=== PATIENT | male | born 1975 | race Caucasian/White ===

== ENCOUNTER 2022-11-23 11:16 | Outpatient (CLI) | payer BC, SELFPAY ==
--- NOTE | ~2022-11-23 | CT_ITS ---
EXAMINATION: CT abdomen pelvis wo con DATE: 11/23/2022 11:37 INDICATION: Hematuria and abdominal pain TECHNIQUE: Computed tomography (CT) of the abdomen and pelvis was performed without intravenous contr ast. The dose-length product (DLP) was 1533.62 mGy-cm. Automated exposure control and iterative recon struction technique were employed. COMPARISON: None FINDINGS: The lung bases are clear. The heart size is normal. There is a small sliding hiatal hernia. Surgical changes are seen near the gastroesophageal junction. The gallbladder is distended and conta ins stones. The liver, spleen, pancreas, and adrenal glands are normal. There is a 1.8 cm stone in t he left renal pelvis. There is moderate inflammatory change surrounding the left renal pelvis and pro ximal ureter. There is mild proximal hydroureter and hydronephrosis on the left. The right kidney is unremarkable. No pathologically enlarged abdominal or pelvic lymph nodes are identified. No free intr aperitoneal gas or evidence of bowel obstruction. The appendix is normal. There is moderate lower lum bar spondylosis. IMPRESSION: 1. 1.8 cm stone in the left renal pelvis with mild proximal left hydroureteronephrosis and inflammato ry change surrounding the renal pelvis. 2. Cholelithiasis with gallbladder distention. Correlate for right upper quadrant tenderness. Reviewed, dictated and finalized at location B. RESTORATION SERVICE CLEANER IMPRESSION: 1. 1.8 cm stone in the left renal pelvis with mild proximal left hydroureterone phrosis and inflammatory change surrounding the renal pelvis. 2. Cholelithiasis with gallbladder distention. Correlate for right upper quadra nt tenderness.
== END 2022-11-23 11:17 | disposition home or self-care (01) ==
LOC: ANHIMG 11:18
PROVIDERS: PCP Family Medicine; Visit Provider Physician Assistant
DX: N20.0 Calculus of kidney (principal); N13.30 Unspecified hydronephrosis; K80.20 Calculus of gallbladder without cholecystitis without obstruction; K82.8 Other specified diseases of gallbladder
CPT/HCPCS: 74176

== ENCOUNTER 2022-11-23 12:10 | Emergency (ER) | payer BC, SELFPAY ==
[2022-11-23 12:22] VITALS: BP 126/63; PULSE 63; RESP 18; TEMP 36.6; O2SAT 100
--- NOTE | 2022-11-23 16:10 | ED.MALEGU ---
HPI - Male Genitourinary General Chief complaint: Urogenital-Male Stated complaint: kidney stone-sent by PCP Time Seen by Provider: 11/23/22 15:57 History of Present Illness HPI Narrative: Patient is a 47-year-old male who presents ER with left-sided flank pain. Had a kidney stone found on CT outpatient. Pain has been ongoing over a week and has been radiating to his upper abdomen. He noticed dysuria and hematuria today. No fevers or chills or sweats. Has not been on any antibiotics. Has been taking [id number] ibuprofen for pain. Related Data Home Medications Medication Instructions Recorded Confirmed cholecalciferol (vitamin D3) 125 125 mcg PO DAILY 07/12/22 11/20/22 mcg (5,000 unit) capsule lamotrigine 100 mg tablet 100 mg PO DAILY 07/12/22 11/20/22 Allergies Allergy/AdvReac Type Severity Reaction Status Date / Time No Known Allergies Allergy Verified 11/20/22 07:16 Review of Systems Review of Systems: All systems reviewed & are unremarkable except as noted in HPI and below Constitutional: Constitutional: Denies chills, Denies fatigue and Denies fever(s) ENT: Denies nasal congestion and Denies sore throat Cardiovascular: Cardiovascular: Denies chest pain, Denies rapid heart rate and Denies radiating jaw, neck or arm pain Respiratory: Respiratory: Denies cough and Denies dyspnea Gastrointestinal: Gastrointestinal: Reports abdominal pain, Denies diarrhea, Denies nausea and Denies vomiting Genitourinary: Genitourinary: Reports hematuria, Reports dysuria and Denies urinary frequency Comments: Left flank pain PMFSH Social History Social History Smoking packs per day: 0.5 Smoking cigarettes per day: 10.0 Years smoked: 30 Smoking pack-years: 15.00 Smoking status: Former smoker Second hand tobacco smoke exposure: No Alcohol intake: current Alcohol use details: rarely- social Substance use: never Living arrangements: with family Occupation/Education: occupation Gender identity (if verbalized by the patient): Male Sexual Orientation (if Verbalized by the Patient): Straight or Heterosexual Spiritual care concerns: No Exam Narrative: GENERAL: Well-appearing, obese, and in no acute distress. HEAD: Normocephalic, atraumatic. ENT: Mucous membranes moist. CHEST: Clear to auscultation. No respiratory distress. HEART: Regular rate and rhythm. Normal peripheral pulses. ABDOMEN: Soft, nontender, nondistended. No CVA tenderness EXTREMITIES: Normal range of motion. No edema. SKIN: Warm, dry, no rash. NEURO: Alert and oriented x3. PSYCH: Normal mood and affect. Course Course Emergency Course: 1610: Discussed with Dr. Freire, he will see what the OR looks like. Urology performed bedside consultation on the patient. After evaluation discussion is recommend that patient receive IV ceftriaxone for UTI and as long as patient's white blood cell count and creatinine are within normal limits he can be discharged and have lithotripsy next week. Patient is to be counseled regarding return precautions including fever, severe pain, or inability keep down food/water/medication. Vital Signs Vital signs: Vital Signs Temperature 97.9 F 11/23/22 12:22 Pulse Rate 63 11/23/22 12:22 Respiratory Rate 18 11/23/22 12:22 Blood Pressure 126/63 11/23/22 12:22 Pulse Oximetry 100 11/23/22 12:22 Oxygen Delivery Room Air 11/23/22 12:22 Temperature 97.9 F 11/23/22 12:22 Pulse Rate 63 11/23/22 12:22 Respiratory Rate 18 11/23/22 12:22 Blood Pressure 126/63 11/23/22 12:22 Pulse Oximetry 100 11/23/22 12:22 Oxygen Delivery Room Air 11/23/22 12:22 MDM - Male Genitourinary Lab Data 11/23/22 16:28 11/23/22 16:28 Labs: Lab Results 11/23/22 11/23/22 11/23/22 Range/Units 16:28 16:28 16:28 WBC 7.2 (4.5-10.0) K/mm3 RBC 4.56 L (4.6-6.20) M/mm3 Hgb 13.8
[2022-11-23 16:42] LABS: Basophils Absolute Auto 0.1 K/mm3 (0.0-0.1); Basophils Percent Auto 1.2 % (0.2-1.2); Eosinophils Absolute Auto 0.3 K/mm3 (0-0.3); Eosinophils Percent Auto 4.6 % (0-4.4); Hematocrit 40.4 % (42.0-52.0); Hemoglobin 13.8 g/dL (14.0-18.0); Immature Granulocyte Absolute 0.02 K/mm3 (0.00-0.031); Immature Granulocyte Percent A 0.3 % (0-0.5); Lymphocytes Percent Auto 29.1 % (18.3-44.2); Mean Corpuscular HGB Conc 34.2 g/dl (32-36); Mean Corpuscular Hemoglobin 30.3 pg (26-34); Mean Corpuscular Volume 88.6 fl (80-100); Monocytes Absolute Auto 0.5 K/mm3 (0.1-0.6); Monocytes Percent Auto 7.5 % (2.6-8.5); Neutrophils Absolute Auto 4.1 K/mm3 (1.3-6.7); Neutrophils Percent Auto 57.3 % (45.5-73.1); Platelet Count Result 345 k/mm3 (150-375); Red Blood Count 4.56 M/mm3 (4.6-6.20); Red Cell Distribution Width 13.4 % (11.5-14.5); White Blood Count 7.2 K/mm3 (4.5-10.0)
--- NOTE | 2022-11-23 16:46 | WPDURCON ---
Assessment and Plan Assessment and plan (1) Left renal stone: Code(s): N20.0 - Calculus of kidney Status: Acute Assessment and Plan: Large left renal pelvic stone it almost certainly will require cystoscopy with left ureteral stent placement and left ESWL. Need for stent placement prior to ESWL will be dependent on his laboratory findings. Urology Consult Note HPI Date Seen: 11/23/22 Primary Care Provider: Marquez Johnson MD Consult Narrative Narrative: Troy Luu is a 47 year old male Without prior known history of urolithiasis and without prior visits to our practice. He presents to the emergency department predominantly with irritable voiding symptoms , specific reporting increased urinary frequency urgency and slight dysuria.. He denies fevers chills gross hematuria and reported only minimal left flank and left upper quadrant pain. Imaging demonstrates a large 18 mm Stone in the left renal pelvis with minimal hydronephrosis and slight perinephric stranding. Urinalysis and laboratory work pending. Review of Systems Cardiovascular: Cardiovascular: Denies chest pain, Denies lightheadedness, Denies palpitations and Denies dyspnea Respiratory: Respiratory: Denies dyspnea Gastrointestinal: Gastrointestinal: Denies diarrhea, Denies nausea and Denies vomiting Genitourinary: Genitourinary: Denies hematuria and Denies dysuria Endocrine: Endocrine: Denies palpitations PMFSH Social History Social History Smoking packs per day: 0.5 Smoking cigarettes per day: 10.0 Years smoked: 30 Smoking pack-years: 15.00 Smoking status: Former smoker Second hand tobacco smoke exposure: No Alcohol intake: current Alcohol use details: rarely- social Substance use: never Living arrangements: with family Occupation/Education: occupation Gender identity (if verbalized by the patient): Male Sexual Orientation (if Verbalized by the Patient): Straight or Heterosexual Spiritual care concerns: No Meds Home Medications and Allergies Home Medications Medication Instructions Recorded Confirmed Type omeprazole 20 mg capsule,delayed 20 mg PO DAILY #30 caps 05/15/21 11/20/22 Rx release lisinopril 20 mg tablet 20 mg PO DAILY #90 tabs 04/03/22 11/20/22 Rx cholecalciferol (vitamin D3) 125 125 mcg PO DAILY 07/12/22 11/20/22 History mcg (5,000 unit) capsule lamotrigine 100 mg tablet 100 mg PO DAILY 07/12/22 11/20/22 History ciprofloxacin HCl 250 mg tablet 250 mg PO Q12H #6 tabs 11/20/22 11/20/22 Rx Allergies Allergy/AdvReac Type Severity Reaction Status Date / Time No Known Allergies Allergy Verified 11/20/22 07:16 Vital Signs Vital Signs - 24 hr 11/23/22 12:22 Temperature 97.9 F Pulse Rate 63 Respiratory Rate 18 Blood Pressure 126/63 Pulse Oximetry 100 Oxygen Delivery Room Air Exam Const: General: no acute distress Resp: Effort & Inspection: normal respiratory effort GI: Inspection: non-distended GI Palp: No abdominal tenderness and No Guarding due to palpation present (GI) Auscultation: normal bowel sounds Results Labs 11/23/22 16:28 11/23/22 16:28
[2022-11-23 16:52] LABS: Alanine Aminotransferase 24 U/L (6-50); Albumin Level 4.3 g/dL (3.5-5.1); Alkaline Phosphatase 94 U/L (38-126); Anion Gap 8 mmol/L (8-16); Appearance Urine Slightly Cloudy (Clear); Aspartate Amino Transferase 25 U/L (17-59); Bilirubin Urine Negative (Negative); Bilirubin,Total 0.4 mg/dL (0.2-1.3); Blood Urea Nitrogen 14 mg/dL (9-20); Blood Urine 3+ (Negative); Carbon Dioxide 28 mmol/L (22-30); Chloride 107 mmol/L (98-107); Color Urine Yellow (Yellow); Estimated CRCL calculation 111 ml/min; Estimated Glomerular Filt Rate > 60; Glucose 79 mg/dL (65-110); Glucose Urine UA Negative (Negative); Ketones Urine Negative (Negative); Leukocyte Esterase Ur 2+ LEU/UL (Negative); Nitrate Urine Negative (Negative); Potassium 4.1 mmol/L (3.4-5.0); Protein Urine 3+ mg/dL (Negative); Sodium 143 mmol/L (137-145); Specific Grav Ur 1.025 (1.001-1.035); Urobilinogen Urine 0.2 mg/dL (<2.0); pH Urine 5.5 (5.0-9.0)
[2022-11-23 17:02] LABS: Bacteria Urine Trace /hpf; Mucus Urine Rare /lpf; RBC Urine >75 /hpf (0-2); WBC Clumps Urine Present /HPF; WBC Urine >75 /hpf
[2022-11-23 17:15] LABS: Add Urine Microscopic? YES
== END 2022-11-23 18:55 | disposition home or self-care (01) ==
PROVIDERS: Emergency Provider Emergency Medicine; PCP Family Medicine
DX: N20.0 Calculus of kidney (principal); N39.0 Urinary tract infection, site not specified; Z87.891 Personal history of nicotine dependence
CPT/HCPCS: 36415; 80053; 81001; 85025; 87086; 96365; 99284; J0696

== ENCOUNTER 2022-11-29 07:16 | Outpatient (CLI) | payer BC, SELFPAY ==
--- NOTE | 2022-11-29 07:37 | ECG_ITS ---
Measurements Intervals [place] Rate: 72 P: 133 WA: 115 QRS: -15 QRSD: 116 T: 0 QT: 374 QTc: 410 Interpretive Statements SINUS RHYTHM LOW QRS VOLTAGE IN PRECORDIAL LEADS [QRS DEFLECTION < 1.0 mV IN CHEST LEADS] BASELINE ARTIFACT IN LEADS V5-6 NO PREVIOUS ECG AVAILABLE FOR COMPARISON Electronically Signed On 11-29-2022 15:39:30 DRILLING PLANT OPERATOR by Dennis Valenzuela M.D.
[2022-11-29 08:39] LABS: Partial Thromboplastin Time 31.5 SECONDS (22.3-36.8); Prothrombin Time 12.6 Seconds (11.1-14.7)
== END 2022-11-29 07:17 | disposition home or self-care (01) ==
LOC: ANHSURGERY 07:20
PROVIDERS: PCP Family Medicine; Visit Provider Urology
DX: Z01.818 Encounter for other preprocedural examination (principal); N20.0 Calculus of kidney; I10 Essential (primary) hypertension
CPT/HCPCS: 36415; 85610; 85730; 93005

== ENCOUNTER 2022-11-30 00:27 | Day surgery (SDC) | payer BC, SELFPAY ==
[2022-11-27 14:32] VITALS: BMI 39.6
--- NOTE | 2022-11-27 14:38 | PC.NURSE ---
Report to the Outpatient Waiting Room, entrance under the green pavilion located off [facility], at time 7:30 on date 11/30/22. Planned Procedure Time: 9:30. Time changes happen often and if your time is changed the preop area will call you the afternoon before. - You and your visitor will be asked to self-screen and do not enter if you have any COVID symptoms. - Only one visitor is requested with a max of two and NO children visitors are allowed at this time. - The patient visitor may be requested to leave or wait in car when not with patient due to distancing restrictions. - A mask is optional within the hospital at this time. Patients may have clear liquids (water, carbonated beverages, clear teas, apple juice) until 3 hours prior to surgery (6:30) with a maximum of 20 ounces. - No food from midnight until time of surgery Take the following medications with a SIP of water the morning of surgery: ANTIBIOTIC, PAIN PILL IF NEEDED DO NOT STOP ANY OF YOUR OTHER PRESCRIPTION MEDICATIONS PRIOR TO SURGERY EXCEPT THE FOLLOWING Medications to discontinue per physician: VITAMINS Date to take last dose: NO MORE UNTIL AFTER SURGERY NO MORE IBUPROFEN UNTIL AFTER SURGERY Please no make-up, nail moroccan, hairspray, perfume, deodorant, or body powder the day of surgery. No jewelry (including any body piercings) or valuables the day of surgery, leave them at home. Please take a shower or bath the night before, or the morning of, surgery with an antibacterial soap. Wear comfortable, loose fitting clothing. - Jewelry must be removed prior to entering the operating room. Rings and piercings that are not removed may be cut off. - The hospital will not accept responsibility for valuables. - Please leave all valuables, including medications, at home the day of surgery. If you are going home after surgery, a licensed driver material handler must drive you home. - NO public transportation without another adult if you receive anesthesia. - We recommend that an adult stay with you for 24 hours following discharge. - We also recommend that you do not drive, make important decision, drink alcoholic beverages, or take any drugs that were not prescribed by your health care provider for at least 24 hours after your discharge time. Follow any additional instructions given to you from your surgeon. If you or anyone in your household have experienced Covid symptoms in the past week, please notify your surgeon or the nurse liaison at the phone number below for possible testing. Telephone instructions given to ERICA HILL and asked if any additional questions and then verbalized understanding. Patient advised to call surgeon office or pre surgery nurse liaison [phone] if any additional questions.
--- NOTE | ~2022-11-30 | XR_ITS ---
Supine and upright views of the abdomen Clinical history: Nephrolithiasis Findings: Bowel gas pattern is nonspecific. No evidence for obstruction or free air. 2.9 x 2.2 cm lef t renal stone is present. No definite right renal stone. Osseous structures are intact. Impression: 2.9 x 2.2 cm left renal stone. Reviewed, dictated and finalized at [facility]. RAIL CAR OPERATOR Impression: 2.9 x 2.2 cm left renal stone.
[2022-11-30 08:06] VITALS: BP 131/91; PULSE 74; RESP 18; TEMP 37.1; O2SAT 100
--- NOTE | 2022-11-30 08:09 | WPDHPUPDATE1 ---
History and Physical Update Update Date/Time: 11/30/22 08:09 History and Physical has been reviewed, including an updated exam of the patient. There are NO changes in the patient's condition. Risks, benefits, and alternatives have been discussed and questions answered. Patient agrees to proceed with procedure. Proceed with cystoscopy, left retrograde pyelogram, left ureteral stent placement, left renal ESWL
[2022-11-30] MEDS: LACTATED RINGERS 1,000 ML 30 ML IV CONT (08:30)
--- NOTE | 2022-11-30 08:56 | WPDANESEPPF ---
Anes - Initial Pre Proc Eval Procedure: Operation Date: 11/30/22 09:30 Proposed Procedures p Left Extracorporeal Shock Wave Lithotripsy - Shilo Wade MD s Cystoscopy with Left Stent Placement - Shilo Wade MD Date/Time: 11/30/22 08:56 Surgeon: Shilo Wade MD Pre Op Diagnosis: left kidney stones Patient Data Age: 47 Gender: M Height: 1.78 m Weight: 122.1 kg Last Vital Signs Temp 37.1 C 11/30/22 08:06 Pulse 74 11/30/22 08:06 Resp 18 11/30/22 08:06 BP 131/91 H 11/30/22 08:06 Pulse Ox 100 11/30/22 08:06 O2 Del Method Room Air 11/30/22 08:06 Allergies Allergy/AdvReac Type Severity Reaction Status Date / Time No Known Allergies Allergy Verified 11/30/22 07:56 Home Medications Medication Instructions Recorded Confirmed Type cholecalciferol (vitamin D3) 125 125 mcg PO HS 07/12/22 11/30/22 History mcg (5,000 unit) capsule lamotrigine 100 mg tablet 100 mg PO HS 07/12/22 11/30/22 History ciprofloxacin HCl 500 mg tablet 500 mg PO Q12H #20 tabs 11/23/22 11/30/22 Rx hydrocodone 5 mg-acetaminophen 325 1 tablet PO Q6H PRN pain #20 tabs 11/23/22 11/30/22 Rx mg tablet ondansetron 4 mg disintegrating 4 mg PO Q6H PRN nausea and 11/23/22 11/30/22 Rx tablet vomiting #10 tabs ibuprofen 800 mg tablet 800 mg PO Q6H PRN Pain 11/27/22 11/30/22 History lisinopril 20 mg tablet 20 mg PO HS 11/27/22 11/30/22 History omeprazole 20 mg capsule,delayed 20 mg PO HS 11/27/22 11/30/22 History release tamsulosin 0.4 mg capsule 0.4 mg PO HS 11/27/22 11/30/22 History Patient hx anesthesia problems: none Family hx anesthesia problems: none Results Review: All pre-operative results and documents have been reviewed as part of the pre-operative evaluation. [facility] Surgical History Surgical History (Updated 11/30/22 @ 08:57 by Troy Carnes MD) S/P gastric sleeve procedure Social History Social History Smoking packs per day: 0.5 Smoking cigarettes per day: 10.0 Years smoked: 30 Smoking pack-years: 15.00 Smoking status: Former smoker Smokeless tobacco user: chewing tobacco Second hand tobacco smoke exposure: No Alcohol intake: current Alcohol use details: RARE Substance use: never Substance use type: does not use Living arrangements: with family Occupation/Education: occupation Gender identity (if verbalized by the patient): Male Sexual Orientation (if Verbalized by the Patient): Straight or Heterosexual Spiritual care concerns: No Anes - Eval Final PreProcedure Day of Procedure 11/30/22 08:56 Patient weight: obese Heart: regular rate and rhythm Lungs: clear to auscultation Airway: Mallampati scale class II Neurological: alert and oriented Last oral intake: >/= 8 hours ASA classification: III Emergent: no Anesthetic plan: proceed Anesthesia type and monitoring: general LMA and standard monitoring Results Review: All pre-operative results and documents have been reviewed as part of the pre-operative evaluation. Informed Consent: The patient's anesthetic plan and its attendant risks and benefits were discussed with the patient/family/POA. Questions were solicited and answers provided to the satisfaction of the patient/family/POA.
[2022-11-30] MEDS: ceFAZolin 3 GM/D5W 100 ML 100 ML IVPB (09:25)
[2022-11-30] MEDS: LIDOCAINE HCL 2% GEL UROJET 10 ML PKG MUCOUS MEM (09:38)
--- NOTE | 2022-11-30 10:22 | P.OP_ITS ---
Procedure Note - Detailed Date of Procedure 11/30/22 Pre-op Diagnosis Left renal stone 2.3 cm Post-op Diagnosis Same Procedure Performed Cystoscopy, left retrograde pyelogram, left ureteral stent placement 4.8 Macedonian contour, left renal lithotripsy Surgeon Shilo Wade MD Anesthesia General Description of Procedure Patient is taken to the operative suite correctly identified. Once anesthesia was obtained he was prepped and draped usual sterile fashion. Sixteen Macedonian flexible scope was inserted the bladder. He has some mild bulbar urethral narrowing but allowed passage of the scope. There were no tumors noted in the bladder. Left ureteral orifice was cannulated with a guidewire and the wire was manipulated past the stone in the renal pelvis. A retrograde ureteral catheter was then inserted and a pyelogram was confirmed of confirm placement of the stent. A 4.8 Macedonian contour stent was then placed with the proximal end coiled above the stone in the distal in the bladder. 2% viscous lidocaine was inserted urethra. Patient was repositioned. The stone was localized in both planes. Two thousand five hundred shocks were given to the stone. Is a very large stone. Will have to see how it fragments over the next few days. Patient will follow-up in a week to [address] Freire with a KUB. Please send a copy this to my office. Estimated Blood Loss 0 Drains Yes Packing No Pathology None sent Complications No immediate complications Condition Stable Disposition PACU
[2022-11-30 10:23] VITALS: BP 137/84; PULSE 86; RESP 12; TEMP 36.6; O2SAT 97
[2022-11-30 10:35] VITALS: BP 112/74; PULSE 70; RESP 13; O2SAT 100
[2022-11-30 10:50] VITALS: BP 95/58; PULSE 66; RESP 13; O2SAT 95
--- NOTE | 2022-11-30 10:51 | SUR.PHASEI ---
1045: Simple mask removed.
[2022-11-30 11:10] VITALS: BP 134/88; PULSE 63; RESP 16
[2022-11-30 11:40] VITALS: BP 122/80; PULSE 67; RESP 12
== END 2022-11-30 11:50 | disposition home or self-care (01) ==
PROVIDERS: PCP Family Medicine; Visit Provider Urology
PROC: (CPT 50590; principal; 2022-11-30 09:30)
PROC: (CPT 52352; 2022-11-30 09:30)
DX: N20.1 Calculus of ureter (principal); Z98.84 Bariatric surgery status; F17.220 Nicotine dependence, chewing tobacco, uncomplicated; E66.9 Obesity, unspecified; Z68.38 Body mass index [BMI] 38.0-38.9, adult
CPT/HCPCS: 52332; 50590; 74018; C1769; C2617; J0690; J1100; J2250; J2405; J2704; J3010; J7030; J7120

== ENCOUNTER 2022-12-14 09:25 | Outpatient (CLI) | payer BC, SELFPAY ==
--- NOTE | ~2022-12-14 | XR_ITS ---
Supine and upright views of the abdomen Clinical history: Left-sided kidney stone COMPARISON: 11/30/2022 Findings: Bowel gas pattern is nonspecific. No evidence for obstruction or free air. Left ureteral st ent in place. Suggestion of partial fragmentation of previously noted large left renal stone, with mo st of the stone cortical fragments present probably in the left renal pelvis. There are remaining sma ll stone fragments at the left lower pole the kidney. Osseous structures are intact. Impression: Possible fragmentation of previously noted large left renal stone with migration of most of the fragm ents or the bulk of the stone probably into left renal pelvis about the proximal portion of left uret eral stent. Additional smaller stone fragments present at the left lower renal pole. Correlate for interval lithotripsy. Reviewed, dictated and finalized at [facility]. MANAGEMENT DIRECTOR Impression: Possible fragmentation of previously noted large left renal stone with migratio n of most of the fragments or the bulk of the stone probably into left renal pe lvis about the proximal portion of left ureteral stent. Additional smaller stone fragments present at the left lower renal pole. Correlate for interval lithotripsy.
== END 2022-12-14 09:26 | disposition home or self-care (01) ==
LOC: ANHIMG 09:31
PROVIDERS: PCP Family Medicine; Visit Provider Urology
DX: N20.0 Calculus of kidney (principal)
CPT/HCPCS: 74018

== ENCOUNTER 2022-12-17 10:22 | Outpatient (CLI) | payer BC, SELFPAY ==
[2022-12-17 11:33] LABS: INR 0.9; Partial Thromboplastin Time 30.7 SECONDS (22.3-36.8); Prothrombin Time 11.8 Seconds (11.1-14.7)
== END 2022-12-17 10:23 | disposition home or self-care (01) ==
LOC: ANHSURGERY 10:25
PROVIDERS: PCP Family Medicine; Visit Provider Urology
DX: Z01.812 Encounter for preprocedural laboratory examination (principal); N20.0 Calculus of kidney
CPT/HCPCS: 36415; 85610; 85730; 87086

== ENCOUNTER 2022-12-21 00:46 | Day surgery (SDC) | payer BC, SELFPAY ==
--- NOTE | 2022-12-17 09:52 | PC.NURSE ---
Addendum entered by Salome Newell RN 12/17/22 10:02: PT INSTRUCTED NO CHEWING TOBACCO DAY OF SURGERY. Original Note: Report to the Outpatient Waiting Room, entrance under the green pavilion located off [facility], at time 6:00 on date 12/21/22. Planned Procedure Time: 7:30. Time changes happen often and if your time is changed the preop area will call you the afternoon before. - You and your visitor will be asked to self-screen and do not enter if you have any COVID symptoms. - Only one visitor is requested with a max of two and NO children visitors are allowed at this time. - The patient visitor may be requested to leave or wait in car when not with patient due to distancing restrictions. - A mask is optional within the hospital at this time. Patients may have clear liquids (water, carbonated beverages, clear teas, apple juice) until 3 hours prior to surgery with a maximum of 20 ounces. - No food from midnight until time of surgery Take the following medications with a SIP of water the morning of surgery: NONE DO NOT STOP ANY OF YOUR OTHER PRESCRIPTION MEDICATIONS PRIOR TO SURGERY EXCEPT THE FOLLOWING Medications to discontinue per physician: VITAMINS Date to take last dose: 12/17/22 Please no make-up, nail kiswahili, hairspray, perfume, deodorant, or body powder the day of surgery. No jewelry (including any body piercings) or valuables the day of surgery, leave them at home. Please take a shower or bath the night before, or the morning of, surgery with an antibacterial soap. Wear comfortable, loose fitting clothing. - Jewelry must be removed prior to entering the operating room. Rings and piercings that are not removed may be cut off. - The hospital will not accept responsibility for valuables. - Please leave all valuables, including medications, at home the day of surgery. If you are going home after surgery, a licensed local owner operator truck driver must drive you home. - NO public transportation without another adult if you receive anesthesia. - We recommend that an adult stay with you for 24 hours following discharge. - We also recommend that you do not drive, make important decision, drink alcoholic beverages, or take any drugs that were not prescribed by your health care provider for at least 24 hours after your discharge time. Follow any additional instructions given to you from your surgeon. If you or anyone in your household have experienced Covid symptoms in the past week, please notify your surgeon or the nurse liaison at the phone number below for possible testing. Telephone instructions given to ERICA HILL and asked if any additional questions and then verbalized understanding. Patient advised to call surgeon office or pre surgery nurse liaison [phone] if any additional questions.
[2022-12-17 09:58] VITALS: BMI 38.6
--- NOTE | 2022-12-20 13:54 | WPDANESEPPF ---
Anes - Initial Pre Proc Eval Procedure: Operation Date: 12/21/22 07:30 Proposed Procedures p Left Renal Extracorporeal Shock Wave Lithotripsy - Shilo Wade MD Date/Time: 12/20/22 13:54 Surgeon: Shilo Wade MD Pre Op Diagnosis: Lt Renal Stone Patient Data Age: 47 Gender: M Height: 1.78 m Weight: 122.1 kg Allergies Allergy/AdvReac Type Severity Reaction Status Date / Time No Known Allergies Allergy Verified 12/21/22 06:33 Home Medications Medication Instructions Recorded Confirmed Type cholecalciferol (vitamin D3) 125 125 mcg PO HS 07/12/22 12/17/22 History mcg (5,000 unit) capsule lamotrigine 100 mg tablet 100 mg PO HS 07/12/22 12/17/22 History ondansetron 4 mg disintegrating 4 mg PO Q6H PRN nausea and 11/23/22 12/17/22 Rx tablet vomiting #10 tabs omeprazole 20 mg capsule,delayed 20 mg PO HS 11/27/22 12/17/22 History release lisinopril 20 mg tablet See Rx Instructions .Route 12/10/22 12/17/22 Rx .COMPLEX #90 tabs Patient hx anesthesia problems: none Family hx anesthesia problems: none Results Review: All pre-operative results and documents have been reviewed as part of the pre-operative evaluation. [facility] Surgical History Surgical History (Updated 11/30/22 @ 08:57 by Troy Carnes MD) S/P gastric sleeve procedure Social History Social History Smoking packs per day: 0.5 Smoking cigarettes per day: 10.0 Years smoked: 30 Smoking pack-years: 15.00 Smoking status: Former smoker Smokeless tobacco user: chewing tobacco Second hand tobacco smoke exposure: No Alcohol intake: current Alcohol use details: RARE Substance use: never Substance use type: does not use Living arrangements: with family Occupation/Education: occupation Gender identity (if verbalized by the patient): Male Sexual Orientation (if Verbalized by the Patient): Straight or Heterosexual Spiritual care concerns: No Anes - Eval Final PreProcedure Day of Procedure 12/20/22 13:54 Patient weight: morbidly obese Heart: regular rate and rhythm Lungs: clear to auscultation Airway: Mallampati scale class III Neurological: alert and oriented Last oral intake: >/= 8 hours ASA classification: III Emergent: no Anesthetic plan: proceed Anesthesia type and monitoring: general LMA and standard monitoring Results Review: All pre-operative results and documents have been reviewed as part of the pre-operative evaluation. Informed Consent: The patient's anesthetic plan and its attendant risks and benefits were discussed with the patient/family/POA. Questions were solicited and answers provided to the satisfaction of the patient/family/POA.
--- NOTE | ~2022-12-21 | XR_ITS ---
Supine views of the abdomen Clinical history: Lithotripsy COMPARISON: 12/14/2022 Findings: Bowel gas pattern is nonspecific. No evidence for obstruction or free air. Left ureteral st ent remains in place. Stable stone or multiple stone fragments about the proximal ureteral pigtail. A dditional left lower pole renal stones are also unchanged. Osseous structures are intact. Impression: No change from prior exam. Stable stones at the left lower renal pole and at the left renal pelvis or proximal left ureter about the proximal ureteral stent pigtail. Left ureteral stent unchanged. Reviewed, dictated and finalized at location M. [employer] Impression: No change from prior exam. Stable stones at the left lower renal pole and at th e left renal pelvis or proximal left ureter about the proximal ureteral stent p igtail. Left ureteral stent unchanged.
[2022-12-21 06:18] VITALS: BP 119/81; PULSE 68; RESP 14; TEMP 36.4; O2SAT 100
[2022-12-21 06:34] VITALS: BMI 39.0
[2022-12-21] MEDS: LACTATED RINGERS 1,000 ML 30 ML IV CONT (06:35)
--- NOTE | 2022-12-21 07:20 | WPDHPUPDATE1 ---
History and Physical Update Update Date/Time: 12/21/22 07:20 History and Physical has been reviewed, including an updated exam of the patient. There are NO changes in the patient's condition. Risks, benefits, and alternatives have been discussed and questions answered. Patient agrees to proceed with procedure. Proceed with eswl left renal calculus
[2022-12-21] MEDS: ceFAZolin 3 GM/D5W 100 ML 100 ML IVPB (07:24)
--- NOTE | 2022-12-21 08:06 | W.PM.PROC2 ---
Procedure Note - Detailed Date of Procedure 12/21/22 Pre-op Diagnosis Lt Renal Stone Post-op Diagnosis Same Procedure Performed For lithotripsy of left renal calculus Surgeon Shilo Wade MD Anesthesia General Description of Procedure Patient is taken the operative suite and correctly identified. Once anesthesia was obtained the stone was localized in both planes. Is a for a large stone that has been treated in the past. Two thousand five hundred shocks were given to the stone. Patient tolerated procedure well without any complications and was taken recovery stable condition. He will follow-up in 7-10 days with [facility]. Please send a copy of op note to my office Drains Yes Packing No Pathology None sent Complications No immediate complications Condition Stable Disposition PACU
[2022-12-21 08:11] VITALS: BP 126/90; PULSE 82; RESP 10; TEMP 36.4; O2SAT 100
[2022-12-21 08:25] VITALS: BP 119/84; PULSE 65; RESP 12; O2SAT 100
--- NOTE | 2022-12-21 08:28 | SUR.PHASEI ---
0825: Simple mask removed.
[2022-12-21 08:40] VITALS: BP 123/82; PULSE 60; RESP 12; O2SAT 98
[2022-12-21 08:50] VITALS: BP 122/88; PULSE 65; RESP 16
[2022-12-21 09:19] VITALS: BP 122/77; PULSE 53; RESP 16
== END 2022-12-21 09:26 | disposition home or self-care (01) ==
PROVIDERS: PCP Family Medicine; Visit Provider Urology
PROC: (CPT 50590; principal; 2022-12-21 07:30)
DX: N20.0 Calculus of kidney (principal); Z98.84 Bariatric surgery status; Z87.891 Personal history of nicotine dependence; E66.01 Morbid (severe) obesity due to excess calories; Z68.39 Body mass index [BMI] 39.0-39.9, adult
CPT/HCPCS: 50590; 74018; J0690; J2250; J2405; J2704; J3010; J7120

== ENCOUNTER 2023-01-08 16:35 | Outpatient (CLI) | payer BC, SELFPAY ==
[2023-01-08 17:24] LABS: Alanine Aminotransferase 21 U/L (6-50); Albumin Level 4.1 g/dL (3.5-5.1); Alkaline Phosphatase 79 U/L (38-126); Anion Gap 7 mmol/L (8-16); Aspartate Amino Transferase 22 U/L (17-59); Bilirubin,Total 0.7 mg/dL (0.2-1.3); Blood Urea Nitrogen 11 mg/dL (9-20); Calcium 8.9 mg/dL (8.4-10.2); Carbon Dioxide 28 mmol/L (22-30); Chloride 105 mmol/L (98-107); Cholesterol 229 mg/dL (0-200); Estimated Glomerular Filt Rate > 60; Glucose 80 mg/dL (65-110); HDL Direct 39 mg/dL; Sodium 140 mmol/L (137-145); Triglycerides 115 mg/dL (<150)
[2023-01-08 17:36] LABS: LDL Cholesterol Direct 149 mg/dL
== END 2023-01-08 16:36 | disposition home or self-care (01) ==
LOC: ANHLAB 16:37
PROVIDERS: PCP Family Medicine; Visit Provider Physician Assistant
DX: I10 Essential (primary) hypertension (principal); E78.5 Hyperlipidemia, unspecified
CPT/HCPCS: 36415; 80053; 80061

== ENCOUNTER 2023-01-10 08:26 | Outpatient (CLI) | payer BC, SELFPAY ==
--- NOTE | ~2023-01-10 | XR_ITS ---
Supine views of the abdomen Clinical history: Left kidney stone COMPARISON: 12/21/2022 Findings: Bowel gas pattern is nonspecific. No evidence for obstruction or free air. Left ureteral st ent remains in place. Large stone or stones at the left renal pelvis region as well as additional lef t lower pole renal stones are similar to prior exam. Osseous structures are intact. Impression: Overall, no change from prior exam. Left ureteral stent with large stone or stones at the left renal pelvis, with additional stones the l eft lower renal pole. Reviewed, dictated and finalized at location M. Impression: Overall, no change from prior exam. Left ureteral stent with large stone or stones at the left renal pelvis, with a dditional stones the left lower renal pole.
== END 2023-01-10 08:27 | disposition home or self-care (01) ==
PROVIDERS: PCP Family Medicine; Visit Provider Urology
DX: N20.0 Calculus of kidney (principal); Z96.0 Presence of urogenital implants
CPT/HCPCS: 74018

== ENCOUNTER 2023-01-15 01:07 | Day surgery (SDC) | payer BC, SELFPAY ==
[2023-01-10 10:44] VITALS: BMI 39.0
--- NOTE | 2023-01-10 10:45 | PC.NURSE ---
Report to the Outpatient Waiting Room, entrance under the green pavilion located off [facility], at time 10:15 on date 01/15/23. Planned Procedure Time: 12:15. Time changes happen often and if your time is changed the preop area will call you the afternoon before. - You and your visitor will be asked to self-screen and do not enter if you have any COVID symptoms. - Only one visitor is requested with a max of two and NO children visitors are allowed at this time. - The patient visitor may be requested to leave or wait in car when not with patient due to distancing restrictions. - A mask is optional within the hospital at this time. Patients may have clear liquids (water, carbonated beverages, clear teas, apple juice) until 3 hours prior to surgery with a maximum of 20 ounces. - No food from midnight until time of surgery Take the following medications with a SIP of water the morning of surgery: NONE DO NOT STOP ANY OF YOUR OTHER PRESCRIPTION MEDICATIONS PRIOR TO SURGERY?EXCEPT THE FOLLOWING Medications to discontinue per physician: VITAMINS Date to take last dose: 01/11/23 Please no make-up, nail turkmen, hairspray, perfume, deodorant, or body powder the day of surgery. No jewelry (including any body piercings) or valuables the day of surgery, leave them at home. Please take a shower or bath the night before, or the morning of, surgery with an antibacterial soap. Wear comfortable, loose fitting clothing. - Jewelry must be removed prior to entering the operating room. Rings and piercings that are not removed may be cut off. - The hospital will not accept responsibility for valuables. - Please leave all valuables, including medications, at home the day of surgery. If you are going home after surgery, a licensed steam train driver must drive you home. - NO public transportation without another adult if you receive anesthesia. - We recommend that an adult stay with you for 24 hours following discharge. - We also recommend that you do not drive, make important decision, drink alcoholic beverages, or take any drugs that were not prescribed by your health care provider for at least 24 hours after your discharge time. Follow any additional instructions given to you from your surgeon. If you or anyone in your household have experienced Covid symptoms in the past week, please notify your surgeon or the nurse liaison at the phone number below for possible testing. Telephone instructions given to ERICA HILL and asked if any additional questions and then verbalized understanding. Patient advised to call surgeon office or pre surgery nurse liaison [phone] if any additional questions.
[2023-01-15] VITALS (8 sets, daily range): BP systolic 97–129; BP diastolic 66–73; PULSE 66–80; RESP 12–20; TEMP 36.6–36.8; O2SAT 97–100
--- NOTE | ~2023-01-15 | XR_ITS ---
EXAMINATION: XR retrograde pyelo w/stent LT DATE: 01/15/2023 13:02 INDICATION: Left internal ureteral stent placement TECHNIQUE: Fluoroscopic images from a left internal ureteral stent placement are submitted for review . 45 seconds of fluoroscopy time. 7 fluoroscopic images FINDINGS: There is a left double-J internal ureteral stent projecting in expected position, with proximal [place] loop at the level of the renal pelvis and distal loop in the pelvis within the bladder lumen. IMPRESSION: 1. Left internal ureteral stent placement. Please refer to real-time procedural findings for detail s. Reviewed, dictated and finalized at location A. IMPRESSION: 1. Left internal ureteral stent placement. Please refer to real-time procedur al findings for details.
--- NOTE | 2023-01-15 09:46 | WPDHPUPDATE1 ---
History and Physical Update Update Date/Time: 01/15/23 09:46 History and Physical has been reviewed, including an updated exam of the patient. There are NO changes in the patient's condition. Risks, benefits, and alternatives have been discussed and questions answered. Patient agrees to proceed with procedure. Proceed with cystoscopy, left retrograde, left ureteroscopy with laser, stone extraction, stent exchange
--- NOTE | 2023-01-15 10:57 | P.PNAN_ITS ---
Anes - Initial Pre Proc Eval Procedure: Operation Date: 01/15/23 12:15 Proposed Procedures p Cystoscopy, Left Ureteroscopy, Left Stone Extraction, Possible Left Retrograde Pyelogram, Possible Right Stent Placement, Possible Holmium Laser - Shilo Wade MD Date/Time: 01/15/23 10:57 Surgeon: Shilo Wade MD Pre Op Diagnosis: left kidney stones Patient Data Age: 47 Gender: M Height: 1.78 m Weight: 123.4 kg Allergies Allergy/AdvReac Type Severity Reaction Status Date / Time No Known Allergies Allergy Verified 01/10/23 10:42 Home Medications Medication Instructions Recorded Confirmed Type cholecalciferol (vitamin D3) 125 125 mcg PO HS 07/12/22 01/10/23 History mcg (5,000 unit) capsule lamotrigine 100 mg tablet 100 mg PO HS 07/12/22 01/10/23 History ondansetron 4 mg disintegrating 4 mg PO Q6H PRN nausea and 11/23/22 01/10/23 Rx tablet vomiting #10 tabs omeprazole 20 mg capsule,delayed 20 mg PO HS 11/27/22 01/10/23 History release lisinopril 20 mg tablet See Rx Instructions .Route 12/10/22 01/10/23 Rx .COMPLEX #90 tabs multivitamin 1 tablet PO DAILY 01/10/23 01/10/23 History Patient hx anesthesia problems: none Family hx anesthesia problems: none Results Review: All pre-operative results and documents have been reviewed as part of the pre- operative evaluation. [facility] Surgical History Surgical History Hx of lithotripsy S/P gastric sleeve procedure Social History Social History Smoking packs per day: 0.5 Smoking cigarettes per day: 10.0 Years smoked: 30 Smoking pack-years: 15.00 Smoking status: Former smoker Smokeless tobacco user: chewing tobacco Second hand tobacco smoke exposure: No Alcohol intake: current Alcohol use details: RARE Substance use: never Substance use type: does not use Living arrangements: with family Occupation/Education: occupation Gender identity (if verbalized by the patient): Male Sexual Orientation (if Verbalized by the Patient): Straight or Heterosexual Spiritual care concerns: No Anes - Eval Final PreProcedure Day of Procedure 01/15/23 10:57 Patient weight: obese Heart: regular rate and rhythm Lungs: decreased breath sounds Airway: Mallampati scale class II Neurological: alert and oriented Last oral intake: >/= 8 hours ASA classification: II Emergent: no Anesthetic plan: proceed Anesthesia type and monitoring: general LMA and standard monitoring Results Review: All pre-operative results and documents have been reviewed as part of the pre- operative evaluation. Informed Consent: The patient's anesthetic plan and its attendant risks and benefits were discussed with the patient/family/POA. Questions were solicited and answers provided to the satisfaction of the patient/family/POA.
[2023-01-15] MEDS: LACTATED RINGERS 1,000 ML 30 ML IV CONT ×2 (11:00→12:43)
[2023-01-15] MEDS: ceFAZolin 3 GM/D5W 100 ML 100 ML IVPB (11:10)
[2023-01-15] MEDS: LIDOCAINE HCL 2% GEL UROJET 10 ML PKG MUCOUS MEM (11:37)
--- NOTE | 2023-01-15 12:43 | P.OP_ITS ---
Procedure Note - Detailed Date of Procedure 01/15/23 Pre-op Diagnosis left kidney stones Post-op Diagnosis Same (Left renal-2 cm- and ureteral calculi) Procedure Performed Cystoscopy, left retrograde, left ureteroscopy with holmium laser, stone extraction, left ureteral stent exchange 4.8 Ghanaian contour Surgeon Shilo Wade MD Anesthesia General Description of Procedure Patient was taken to the operative suite correctly identified. Once anesthesia was obtained was placed in dorsal lithotomy position and prepped and draped usual sterile fashion. Twenty-two Ghanaian scope was inserted into the urethra. There were no tumors noted the prior stent was grasped and brought out the meatus. Guidewire was inserted through the stent up to the renal pelvis. A ureteral access sheath was placed the mini flexible scope was inserted. Patient was noted to have some stones in the distally a to mid ureter. We used a 200 micron fiber to fragment and pulverize the stones. Some of these were retrieved. We then advanced the scope up to the kidney. He has about a 2 cm stone present. We then pulverized fragmented and dusted the stone. We flushed out a majority of the dust. There were no significant enlarged stones at this time. At this point a pyelogram was performed. 4.8 [place]ian contour stent was then placed with the proximal end coiled in the upper pole and the distal in the bladder. Bladder was drained. 2% viscous lidocaine was inserted into the urethra patient is taken recovery stable condition. He will follow-up in 7-10 days for cysto with stent removal in the office. Please send a copy of op note to office Estimated Blood Loss 0 Drains Yes Packing No Pathology Yes Complications No immediate complications Condition Stable Disposition PACU
== END 2023-01-15 13:57 | disposition home or self-care (01) ==
PROVIDERS: PCP Family Medicine; Visit Provider Urology
PROC: (CPT 52352; principal; 2023-01-15 12:15)
DX: N20.2 Calculus of kidney with calculus of ureter (principal); F17.220 Nicotine dependence, chewing tobacco, uncomplicated; E66.9 Obesity, unspecified; Z68.39 Body mass index [BMI] 39.0-39.9, adult; Z98.84 Bariatric surgery status
CPT/HCPCS: 52356; 74420; 82365; 88300; C1758; C1769; C1894; C2617; J0690; J1100; J1170; J2250; J2405; J2704; J3010; J7120

== ENCOUNTER 2023-02-15 00:46 | Day surgery (SDC) | payer BC, SELFPAY ==
[2023-02-07 09:49] VITALS: BMI 39.6
--- NOTE | 2023-02-14 09:40 | P.PNAN_ITS ---
Anes - Initial Pre Proc Eval Procedure: Operation Date: 02/15/23 09:15 Proposed Procedures p Screening Colonoscopy - Ji Guzman MD Date/Time: 02/14/23 09:40 Surgeon: Ji Guzman MD Pre Op Diagnosis: neoplasm screening Patient Data Age: 47 Gender: M Height: 1.78 m Weight: 125.5 kg Allergies Allergy/AdvReac Type Severity Reaction Status Date / Time No Known Allergies Allergy Verified 02/07/23 09:50 Home Medications Medication Instructions Recorded Confirmed Type cholecalciferol (vitamin D3) 125 125 mcg PO HS 07/12/22 02/07/23 History mcg (5,000 unit) capsule lamotrigine 100 mg tablet 100 mg PO HS 07/12/22 02/07/23 History omeprazole 20 mg capsule,delayed 20 mg PO HS 11/27/22 02/07/23 History release multivitamin 1 tablet PO DAILY 01/10/23 02/07/23 History sodium,potassium,mag sulfates 17.5 See Rx Instructions PO .COMPLEX 01/22/23 Rx gram-3.13 gram-1.6 gram oral soln #354 mL (Suprep Bowel Prep Kit) lisinopril 20 mg tablet 20 mg PO DAILY 02/07/23 02/07/23 History Patient hx anesthesia problems: none Family hx anesthesia problems: none Results Review: All pre-operative results and documents have been reviewed as part of the pre- operative evaluation. [facility] Past Medical History Medical History (Updated 02/15/23 @ 08:15 by Ji Guzman MD) Bipolar disorder Chronic GERD HLD (hyperlipidemia) Hypertension NICOLASA (obstructive sleep apnea) Surgical History Surgical History Hx of lithotripsy S/P gastric sleeve procedure Social History Social History Smoking packs per day: 0.5 Smoking cigarettes per day: 10.0 Years smoked: 30 Smoking pack-years: 15.00 Smoking status: Current every day smoker Tobacco type: smokeless tobacco Smokeless tobacco user: chewing tobacco Second hand tobacco smoke exposure: No Alcohol intake: current Alcohol use details: occasional Substance use: never Substance use type: does not use Living arrangements: with family Occupation/Education: occupation Gender identity (if verbalized by the patient): Male Sexual Orientation (if Verbalized by the Patient): Straight or Heterosexual Spiritual care concerns: No Anes - Eval Final PreProcedure Day of Procedure 02/14/23 09:40 Patient weight: obese Heart: regular rate and rhythm Lungs: clear to auscultation Airway: Mallampati scale class II Neurological: alert and oriented Last oral intake: >/= 8 hours ASA classification: III Emergent: no Anesthetic plan: proceed Anesthesia type and monitoring: general GIVS and standard monitoring Results Review: All pre-operative results and documents have been reviewed as part of the pre- operative evaluation. Informed Consent: The patient's anesthetic plan and its attendant risks and benefits were discussed with the patient/family/POA. Questions were solicited and answers provided to the satisfaction of the patient/family/POA.
[2023-02-15 07:44] VITALS: BP 116/76; PULSE 79; RESP 18; TEMP 36.1; O2SAT 99; BMI 39.1
[2023-02-15] MEDS: LACTATED RINGERS 1,000 ML 150 ML IV CONT (07:59)
--- NOTE | 2023-02-15 08:14 | PM.HPGS ---
History of Present Illness History of Present Illness Consent: Risks, benefits, and alternatives have been discussed and questions answered. Patient agrees to proceed with procedure. Chief complaint: neoplasm screening Narrative: Troy Luu is a 47 year old male Presents for screening colonoscopy. Patient's current weight appetite bowel movements are normal. Patient denies abdominal pain. He has had no bleeding. His family history noncontributory. Patient has a recent history kidney stones earlier this year now resolved. Patient also has a past medical history of gastric sleeve in the past because of obesity. He has an underlying history of bipolar disorder. Review of Systems Review of Systems: Review of systems is noncontributory. [facility] Past Medical History Medical History (Updated 02/15/23 @ 08:15 by Ji Guzman MD) Bipolar disorder Chronic GERD HLD (hyperlipidemia) Hypertension NICOLASA (obstructive sleep apnea) Surgical History Surgical History Hx of lithotripsy S/P gastric sleeve procedure Social History Social History Smoking packs per day: 0.5 Smoking cigarettes per day: 10.0 Years smoked: 30 Smoking pack-years: 15.00 Smoking status: Current every day smoker Tobacco type: smokeless tobacco Smokeless tobacco user: chewing tobacco Second hand tobacco smoke exposure: No Alcohol intake: current Alcohol use details: occasional Substance use: never Substance use type: does not use Living arrangements: with family Occupation/Education: occupation Gender identity (if verbalized by the patient): Male Sexual Orientation (if Verbalized by the Patient): Straight or Heterosexual Spiritual care concerns: No Meds Home Medications and Allergies Home Medications Medication Instructions Recorded Confirmed Type cholecalciferol (vitamin D3) 125 125 mcg PO HS 07/12/22 02/07/23 History mcg (5,000 unit) capsule lamotrigine 100 mg tablet 100 mg PO HS 07/12/22 02/07/23 History omeprazole 20 mg capsule,delayed 20 mg PO HS 11/27/22 02/07/23 History release multivitamin 1 tablet PO DAILY 01/10/23 02/07/23 History sodium,potassium,mag sulfates 17.5 See Rx Instructions PO .COMPLEX 01/22/23 Rx gram-3.13 gram-1.6 gram oral soln #354 mL (Suprep Bowel Prep Kit) lisinopril 20 mg tablet 20 mg PO DAILY 02/07/23 02/07/23 History Allergies Allergy/AdvReac Type Severity Reaction Status Date / Time No Known Allergies Allergy Verified 02/07/23 09:50 Vital Signs Vital Signs - 24 hr 02/15/23 07:44 Temperature 97 F L Pulse Rate 79 Respiratory Rate 18 Blood Pressure 127/115 H Pulse Oximetry 99 Exam Narrative: Physical exam reveals patient to be alert. Vital signs stable. HEENT exam is unremarkable. Patient is anicteric. Lungs are clear to auscultation and percussion. Heart is without murmur or extra sounds. Abdomen bowel sounds are present soft nontender with no organomegaly. Abdomen is obese. Digital rectal exam normal. Assessment and Plan Assessment and plan (1) Encounter for screening colonoscopy: Code(s): Z12.11 - Encounter for screening for malignant neoplasm of colon Status: Acute Assessment and Plan: Patient presents today for screening colonoscopy. He appears to be at average risk for colon polyps. Further recommendations will be given after colonoscopy.
[2023-02-15 09:27] VITALS: BP 124/86; PULSE 83; RESP 21; O2SAT 94
[2023-02-15 09:37] VITALS: BP 117/63; PULSE 74; RESP 21; O2SAT 98
[2023-02-15 09:47] VITALS: BP 120/79; PULSE 65; RESP 16; O2SAT 100
== END 2023-02-15 09:49 | disposition home or self-care (01) ==
PROVIDERS: PCP Family Medicine; Visit Provider Internal Medicine Gastroenterology
PROC: 0DJD8ZZ Inspection of Lower Intestinal Tract, Via Natural or Artificial Opening Endoscopic (ICD-10-PCS; CPT 45378; principal; 2023-02-15 09:15)
DX: Z12.11 Encounter for screening for malignant neoplasm of colon (principal); D12.8 Benign neoplasm of rectum; K57.30 Diverticulosis of large intestine without perforation or abscess without bleeding; E78.5 Hyperlipidemia, unspecified; I10 Essential (primary) hypertension; G47.33 Obstructive sleep apnea (adult) (pediatric); K21.9 Gastro-esophageal reflux disease without esophagitis; F31.9 Bipolar disorder, unspecified; Z98.84 Bariatric surgery status; F17.210 Nicotine dependence, cigarettes, uncomplicated; F17.220 Nicotine dependence, chewing tobacco, uncomplicated; E66.9 Obesity, unspecified; Z68.39 Body mass index [BMI] 39.0-39.9, adult
CPT/HCPCS: 45385; 88305; J2001; J2704; J7120

== ENCOUNTER 2023-03-05 08:38 | Outpatient (CLI) | payer BC, SELFPAY ==
--- NOTE | ~2023-03-05 | US_ITS ---
US retroperitoneal comp 03/05/2023 09:13 Procedure: Realtime transabdominal ultrasound of the kidneys and bladder. Indication: Kidney stones Comparison: KUB dated 01/10/2023 Findings: Renal echotexture is normal bilaterally without contour deforming mass or renal calculus. T here is mild left hydronephrosis. The right kidney measures 12.2 cm and left kidney measures 14.4 cm. Bladder within normal limits. Incidental note is made of cholelithiasis. Impression: 1: Mild left hydronephrosis. 2: Cholelithiasis. Reviewed, dictated and finalized at location L. Impression: 1: Mild left hydronephrosis. 2: Cholelithiasis.
--- NOTE | ~2023-03-05 | XR_ITS ---
EXAMINATION: XR abdomen/kub 1V DATE: 03/05/2023 08:52 INDICATION: Left kidney stone. TECHNIQUE: A supine view of the abdomen on 2 radiographs was obtained. COMPARISON: Abdomen radiographs 01/10/2023, CT abdomen and pelvis 11/23/2022 FINDINGS: There are no dilated loops of bowel. There is a staple line involving the stomach. There is no visible urolithiasis. IMPRESSION: 1. No visible urolithiasis. Reviewed, dictated and finalized at location A. IMPRESSION: 1. No visible urolithiasis.
== END 2023-03-05 08:39 | disposition home or self-care (01) ==
PROVIDERS: PCP Family Medicine; Visit Provider Urology
DX: N13.30 Unspecified hydronephrosis (principal); K80.20 Calculus of gallbladder without cholecystitis without obstruction
CPT/HCPCS: 74018; 76770

== ENCOUNTER 2023-06-20 08:01 | Outpatient (CLI) | payer BC, SELFPAY ==
--- NOTE | ~2023-06-20 | XR_ITS ---
EXAMINATION: XR abdomen/kub 1V INDICATION: Left-sided kidney stone TECHNIQUE: Supine views of the abdomen were obtained on 2 radiographs. COMPARISON: 03/05/2023 FINDINGS: No urolithiasis is identified. A staple line is present in the left upper quadrant. There a re no dilated loops of bowel. Moderate lumbar spondylosis is noted. There is mild osteoarthritis of t he hips. IMPRESSION: 1. No urolithiasis identified. Reviewed, dictated and finalized at location L.
== END 2023-06-20 08:02 | disposition home or self-care (01) ==
LOC: ANHIMG 08:03
PROVIDERS: PCP Family Medicine; Visit Provider Urology
DX: N20.0 Calculus of kidney (principal)
CPT/HCPCS: 74018

== ENCOUNTER 2023-12-12 14:43 | Outpatient (CLI) | payer BC, SELFPAY ==
[2023-12-12 15:11] LABS: Basophils Absolute Auto 0.1 K/mm3 (0.0-0.1); Basophils Percent Auto 0.8 % (0.2-1.2); Eosinophils Absolute Auto 0.1 K/mm3 (0-0.3); Eosinophils Percent Auto 1.8 % (0-4.4); Hematocrit 45.7 % (42.0-52.0); Hemoglobin 15.4 g/dL (14.0-18.0); Immature Granulocyte Absolute 0.03 K/mm3 (0.00-0.031); Immature Granulocyte Percent A 0.4 % (0-0.5); Lymphocytes Absolute Auto 2.99 K/mm3 (0.9-3.2); Lymphocytes Percent Auto 37.8 % (18.3-44.2); Mean Corpuscular HGB Conc 33.7 g/dl (32-36); Mean Corpuscular Hemoglobin 30.1 pg (26-34); Mean Corpuscular Volume 89.3 fl (80-100); Monocytes Absolute Auto 0.6 K/mm3 (0.1-0.6); Monocytes Percent Auto 7.7 % (2.6-8.5); Neutrophils Absolute Auto 4.1 K/mm3 (1.3-6.7); Neutrophils Percent Auto 51.5 % (45.5-73.1); Platelet Count Result 288 k/mm3 (150-375); Red Blood Count 5.12 M/mm3 (4.6-6.20); Red Cell Distribution Width 14.1 % (11.5-14.5); White Blood Count 7.9 K/mm3 (4.5-10.0)
[2023-12-12 15:13] LABS: Appearance Urine Clear (Clear); Bilirubin Urine Negative (Negative); Blood Urine Negative (Negative); Color Urine Yellow (Yellow); Glucose Urine UA Negative (Negative); Ketones Urine Negative (Negative); Leukocyte Esterase Ur Negative LEU/UL (NEGATIVE); Nitrate Urine Negative (Negative); Protein Urine Negative (Negative); pH Urine 6.5 (5.0-9.0)
[2023-12-12 15:17] LABS: Add Urine Microscopic? NO
[2023-12-12 16:19] LABS: Alanine Aminotransferase 19 U/L (6-50); Albumin Level 4.5 g/dL (3.5-5.1); Alkaline Phosphatase 87 U/L (38-126); Anion Gap 9 mmol/L (8-16); Aspartate Amino Transferase 24 U/L (17-59); Bilirubin,Total 0.7 mg/dL (0.2-1.3); Blood Urea Nitrogen 18 mg/dL (9-20); Calcium 9.7 mg/dL (8.4-10.2); Carbon Dioxide 21 mmol/L (22-30); Chloride 107 mmol/L (98-107); Estimated Glomerular Filt Rate > 60; Glucose 83 mg/dL (65-110); Potassium 3.5 mmol/L (3.4-5.0); Sodium 137 mmol/L (137-145)
[2023-12-12 21:11] LABS: Hemoglobin A1C 4.9 % (<5.7)
== END 2023-12-12 14:44 | disposition home or self-care (01) ==
LOC: ANHLAB 14:44
PROVIDERS: PCP Family Medicine; Visit Provider Physician Assistant
DX: Z00.00 Encounter for general adult medical examination without abnormal findings (principal); R73.01 Impaired fasting glucose; N20.0 Calculus of kidney; I10 Essential (primary) hypertension; E78.5 Hyperlipidemia, unspecified; E55.9 Vitamin D deficiency, unspecified; G47.33 Obstructive sleep apnea (adult) (pediatric)
CPT/HCPCS: 36415; 80053; 81003; 82306; 83036; 84443; 85025

== ENCOUNTER 2024-04-10 12:32 | Emergency (ER) | payer BC, SELFPAY ==
--- NOTE | ~2024-04-10 | XR_ITS ---
EXAMINATION: XR knee RT min 4V DATE: 04/10/2024 13:50 INDICATION: Medial right knee pain. TECHNIQUE: 4 views of right knee were obtained. COMPARISON: None. FINDINGS: Bone alignment is normal. No fracture. There is mild osteoarthritis of lateral and patellof emoral compartments. There is chondrocalcinosis of the menisci. No knee joint effusion. IMPRESSION: 1. Mild right knee osteoarthritis. Reviewed, dictated and finalized at location A.
[2024-04-10 12:35] VITALS: BP 138/86; PULSE 80; RESP 18; TEMP 36.7; O2SAT 99
--- NOTE | 2024-04-10 13:42 | ED.EXTPRO ---
HPI - Extremity Problem General Chief complaint: Extremity Problem,Nontraumatic Stated complaint: Right leg pain Time Seen by Provider: 04/10/24 13:26 Source: patient Mode of arrival: ambulatory Limitations: no limitations History of Present Illness HPI Narrative: This is a 49-year-old male with PMH of HLD, HTN, bipolar presents to the ED with chief complaint of right knee pain for the past few days. Patient reports difficulty with weight-bearing. Denies any specific injury. Reports past injury to the knee 30 years ago in which he had a meniscus repaired. No recent knee problems or injuries. Denies numbness, weakness. Denies calf pain or swelling. Related Data Home Medications Medication Instructions Recorded Confirmed cholecalciferol (vitamin D3) 125 125 mcg PO HS 07/12/22 12/31/23 mcg (5,000 unit) capsule omeprazole 20 mg capsule,delayed 20 mg PO HS 11/27/22 12/31/23 release multivitamin 1 tablet PO DAILY 01/10/23 12/31/23 lamotrigine 100 mg tablet See Rx Instructions PO .COMPLEX 07/18/23 12/31/23 Allergies Allergy/AdvReac Type Severity Reaction Status Date / Time No Known Allergies Allergy Verified 04/10/24 12:37 Review of Systems Review of Systems: All systems as dictated in HPI [facility] Past Medical History Medical History Bipolar disorder Chronic GERD HLD (hyperlipidemia) Hypertension NICOLASA (obstructive sleep apnea) Surgical History Surgical History Hx of lithotripsy S/P gastric sleeve procedure Social History Social History Smoking packs per day: 0.5 Smoking cigarettes per day: 10.0 Years smoked: 30 Smoking pack-years: 15.00 Smoking status: Current every day smoker Tobacco type: smokeless tobacco Smokeless tobacco user: chewing tobacco Second hand tobacco smoke exposure: No Alcohol intake: current Alcohol use details: occasional Substance use: never Substance use type: does not use Living arrangements: with family Occupation/Education: occupation Gender identity (if verbalized by the patient): Male Sexual Orientation (if Verbalized by the Patient): Straight or Heterosexual Spiritual care concerns: No Exam Narrative: GENERAL: Well-appearing, well-nourished, and in no acute distress. HEAD: Normocephalic, atraumatic. EYES: PERRLA and EOMI. ENT: Nares clear, no rhinorrhea or epistaxis. Mucous membranes moist. Oropharynx without tonsillar hypertrophy exudate or other lesions. NECK: Supple. No adenopathy or masses. CHEST: No respiratory distress. Clear to auscultation. No wheezes rales or rhonchi HEART: Regular rate and rhythm. No murmur heard. Normal peripheral pulses. ABDOMEN: Soft, nontender, nondistended, normal active bowel sounds. MSK: right knee: tenderness to the medial joint line. No effusion. No warmth or erythema. Full active and passive range of motion. Left knee: Benign SKIN: Warm, dry, no rash. NEURO: Alert and oriented x4. No focal deficits. PSYCH: Normal mood and affect. Course Vital Signs Vital signs: Vital Signs Temperature 98.1 F 04/10/24 12:35 Pulse Rate 80 04/10/24 12:35 Respiratory Rate 18 04/10/24 12:35 Blood Pressure 138/86 04/10/24 12:35 Pulse Oximetry 99 04/10/24 12:35 Oxygen Delivery Room Air 04/10/24 12:35 Temperature 98.1 F 04/10/24 12:35 Pulse Rate 80 04/10/24 12:35 Respiratory Rate 18 04/10/24 12:35 Blood Pressure 138/86 04/10/24 12:35 Pulse Oximetry 99 04/10/24 12:35 Oxygen Delivery Room Air 04/10/24 12:35 MDM - Extremity (Nontraumatic) MDM Narrative Medical decision making narrative: this is a 49-year-old male who presents to the ED with chief complaint of right knee pain for the past few days. Vitals are normal. Exam is benign overall. There is tenderness along the
== END 2024-04-10 14:09 | disposition home or self-care (01) ==
PROVIDERS: Emergency Provider Physician Assistant; PCP Family Medicine
DX: M17.11 Unilateral primary osteoarthritis, right knee (principal); E78.5 Hyperlipidemia, unspecified; I10 Essential (primary) hypertension; K21.9 Gastro-esophageal reflux disease without esophagitis; G47.33 Obstructive sleep apnea (adult) (pediatric); Z98.84 Bariatric surgery status; F17.220 Nicotine dependence, chewing tobacco, uncomplicated
CPT/HCPCS: 73564; 99283

== ENCOUNTER 2025-02-20 10:34 | Outpatient (CLI) | payer BC, SELFPAY ==
[2025-02-20 11:13] LABS: Hematocrit 43.4 % (42.0-52.0); Hemoglobin 14.5 g/dL (14.0-18.0); Mean Corpuscular HGB Conc 33.4 g/dl (32-36); Mean Corpuscular Hemoglobin 29.9 pg (26-34); Mean Corpuscular Volume 89.5 fl (80-100); Mean Platelet Volume 9.1 fl (7.4-10.4); Platelet Count Result 246 k/mm3 (150-375); Red Blood Count 4.85 M/mm3 (4.6-6.20); Red Cell Distribution Width 13.9 % (11.5-14.5); White Blood Count 5.6 K/mm3 (4.5-10.0)
[2025-02-20 11:16] LABS: Add Urine Microscopic? NO; Appearance Urine Clear (Clear); Bilirubin Urine Negative (Negative); Blood Urine Negative (Negative); Color Urine Yellow (Yellow); Glucose Urine UA Negative (Negative); Ketones Urine Negative (Negative); Leukocyte Esterase Ur Negative LEU/UL (Negative); Nitrate Urine Negative (Negative); Protein Urine Negative (Negative); Specific Grav Ur 1.021 (1.001-1.035); pH Urine 6.5 (5.0-9.0)
[2025-02-20 11:22] LABS: Alanine Aminotransferase 16 U/L (6-50); Albumin Level 4.5 g/dL (3.5-5.1); Alkaline Phosphatase 93 U/L (38-126); Anion Gap 9 mmol/L (4-12); Aspartate Amino Transferase 20 U/L (17-59); Bilirubin,Total 0.7 mg/dL (0.2-1.3); Blood Urea Nitrogen 15 mg/dL (9-20); Calcium 9.2 mg/dL (8.4-10.2); Carbon Dioxide 22 mmol/L (22-30); Chloride 109 mmol/L (98-107); Cholesterol 261 mg/dL (0-200); Estimated Glomerular Filt Rate > 60; Glucose 83 mg/dL (65-110); HDL Direct 40 mg/dL; Potassium 4.1 mmol/L (3.4-5.0); Sodium 140 mmol/L (137-145); Triglycerides 126 mg/dL (<150)
[2025-02-20 11:23] LABS: Hemoglobin A1C 4.8 % (<5.7)
[2025-02-20 11:34] LABS: LDL Cholesterol Direct 165 mg/dL
[2025-02-20 11:43] LABS: Vitamin D 25 Hydroxy 74.2 ng/mL
[2025-02-20 11:52] LABS: Prostate Specific Antigen 0.9 ng/mL (< OR = 4.0); Thyroid Stimulating Hormone 0.997 uIU/mL (0.465-4.680)
--- OUTSIDE RECORDS SUMMARY | 2025-02-20 16:19 | XMS_ITS | Clinical Summary ---
Author Organization [facility] [place] [address] Address [address] [place] [address] Care Team Providers Care Funeral Sales Manager Name Role Phone Marquez Johnson MD Primary Care Provider Allergies No known active allergies Surgical History Surgery Date Site/Laterality Comments KNEE SURGERY Knee Surgery - 1988 (Added by Conv) Medical History Medical History Date Comments Personal history of other di seases of the nervous system and sense organs History of sleep a pnea - (Added by TW [facility]) Personal history of other di seases of the circulatory system History of hypertension - (A dded by TW [facility]) Family History Medical History Relation Name Comments Hypertension Father Family history of hypertension - (Added by TW [facility]) Obesity Father Family history of obesity - (Added by TW [facility]) Obesity Mother Family history of obesity - (Added by TW [facility]) Relation Name Status Comments Father Mother Social History Tobacco Use Types Packs/Day Years Used Date Smoking Tobacco: Never Assessed Sex and Gender Information Value Date Recorded Sex Assigned at Not on file 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 Gender Identity Not on file Sexual Orientation Not on file Obstetrics History Last Filed Vital Signs Vital Sign Reading Time Taken Comments Blood Pressure 139/86 02/17/2016 7:58 AM CDT Pulse 66 02/17/2016 7:58 AM CDT Temperature - - Respiratory Rate - - Oxygen Saturation 100% 02/10/2014 8:06 AM CDT Inhaled Oxygen Concentration - - Weight 112.5 kg (247 lb 15.9 oz) 02/17/2016 7:58 AM CDT Height 177.8 cm (5' 10 ) 02/17/2016 7:58 AM CDT Body Mass Index 35.58 02/17/2016 7:58 AM CDT Plan of Treatment Not on file Insurance [facility] Care Teams Funeral Sales Manager Relationship Specialty Start Date End Date Marquez Johnson MD [address] [facility] [address] [place] [address] PCP - General Family Medicine 01/10/18
--- OUTSIDE RECORDS SUMMARY | 2025-02-20 16:19 | XMS_ITS | CONTINUITY OF CARE DOCUMENT ---
Author Name cherri harley Address Unknown Organization [facility] Address [address] [place] [address] Phone [phone] Care Team Providers Care Educational Resource Coordinator Name Role Phone Octavio MARSH, Fior Unavailable INSURANCE PROVIDERS Payer name Policy type / Coverage type Niki red libertarian ID [facility] [id number]
--- OUTSIDE RECORDS SUMMARY | 2025-02-20 16:19 | XMS_ITS | Patient Health Record ---
Author Organization [facility] Address [address] [place] [address] Care Team Providers Care Property Management Specialist Name Role Phone Urban Enriquez Primary Care Provider [phone] Reason For Referral No Information Immunizations Vaccine Route Administration Date Status Comme nts COVID-19 Moderna 2nd IM Intramuscular 12/22/2020 Administered EUA date 0. Screening reviewed and consent signed. Patient tolerated well. COVID-19 Moderna 1ST IM Intramuscular 11/24/2020 Administered EUA date 0. Screening reviewed and consent signed. Patient tolerated well. Plan Of Treatment No Information
--- OUTSIDE RECORDS SUMMARY | 2025-02-20 16:19 | XMS_ITS | Referral Summary ---
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
== END 2025-02-20 10:35 | disposition home or self-care (01) ==
LOC: ANHLAB 10:36
PROVIDERS: PCP Family Medicine; Visit Provider Physician Assistant
DX: Z00.00 Encounter for general adult medical examination without abnormal findings (principal); I10 Essential (primary) hypertension; E78.5 Hyperlipidemia, unspecified; E66.01 Morbid (severe) obesity due to excess calories; G47.33 Obstructive sleep apnea (adult) (pediatric); F31.9 Bipolar disorder, unspecified; R73.01 Impaired fasting glucose; E55.9 Vitamin D deficiency, unspecified; Z12.5 Encounter for screening for malignant neoplasm of prostate
CPT/HCPCS: 36415; 80053; 80061; 81003; 82306; 83036; 84153; 84443; 85027; G0103

== ENCOUNTER 2025-09-15 15:36 | Outpatient (CLI) | payer BC, SELFPAY ==
--- OUTSIDE RECORDS SUMMARY | 2006-09-17 18:00 | XMS_ITS | Continuity of Care Document ---
Author Organization [employer] Address [address] [place] [address] Phone Care Team Providers Care Carpenters Supervisor Name Role Phone Pacheco Aponte DO Unavailable Unavailable Allergies, Adverse Reactions, Alerts Substance Reaction Status Criticality No Known Drug Allergies Other Active No I nformation Advance Directives Directive Yes / No Effective Date File Name No Information Encounters Encounter Description Practice Location Reason(s) For Visit Diagnoses Date Provider Providers Copied on Encounter [facility], [address], [place], [place], [id number], tel:[phone] [place] DERMATOPHYTOSIS OF NAILROUTINE MEDICAL EXAMELEV BL PRES W/O HYPERTNOBESITY NOS 9-200 6 Fay Bergman. [address] [facility] [address], [place], [place], [id number] , [place]. tel:[phone] Family History Family Member Type Diagnosis Age At Onset No Information Payers Payer name Insurance type Covered constitution party ID Authoriza tion(s) No Information Social History Type Description Quantity Date Captured Comments Sex Male Smoking Status No Information Vital Signs Date / Time: Height Weight BMI Pulse Rate Blood Pressure Temperature Respiratory Rate Body Surface Area Head Circumference Head Circ. Percentile Wt./[place]. Percentile BMI percentile Pulse Ox Inhaled Ox 3:42 PM 70.00 in 361.10 lbs 51.8 1 kg/m eter (2) 96 /min 150/76 mm[Hg] 98.80 F 20 /min Chief Complaint And Reason For Visit No Information Reason For Referral Reason For Referral No Information History Of Present Illness Encounter Date Complaint History Of Prese nt Illness No Information Functional Status Date Functional Assessmen t No Information Instructions Date Instruction Additional Infor mation No Information Assessments Type Assessment Date No Information Patient Care Teams Name Effective Dates (start - stop) Status Members No Information
[2025-09-15 15:59] LABS: Hematocrit 43.2 % (42.0-52.0); Hemoglobin 15.0 g/dL (14.0-18.0); Immature Granulocyte Percent A 0.3 % (0-0.5); Lymphocytes Absolute Auto 2.47 K/mm3 (0.9-3.2); Mean Corpuscular HGB Conc 34.7 g/dl (32-36); Mean Corpuscular Hemoglobin 30.5 pg (26-34); Mean Corpuscular Volume 87.8 fl (80-100); Nucleated Red Blood Cells Absolute Auto 0.000 K/mm3 (0.0-0.012); Nucleated Red Blood Cells Perc 0.0 % (0.0-0.2); Platelet Count Result 258 k/mm3 (150-375); Red Blood Count 4.92 M/mm3 (4.6-6.20); White Blood Count 6.2 K/mm3 (4.5-10.0)
[2025-09-15 16:59] LABS: Free T4 Free Thyroxine 0.98 ng/dL (0.78-2.19)
[2025-09-15 17:02] LABS: Alanine Aminotransferase 16 U/L (6-50); Albumin Level 4.6 g/dL (3.5-5.1); Alkaline Phosphatase 83 U/L (38-126); Anion Gap 9 mmol/L (4-12); Aspartate Amino Transferase 25 U/L (17-59); Bilirubin,Total 0.6 mg/dL (0.2-1.3); Blood Urea Nitrogen 12 mg/dL (9-20); Calcium 9.2 mg/dL (8.4-10.2); Carbon Dioxide 21 mmol/L (22-30); Chloride 108 mmol/L (98-107); Estimated Glomerular Filt Rate > 60; Glucose 82 mg/dL (65-110); Potassium 3.9 mmol/L (3.4-5.0); Sodium 138 mmol/L (137-145); Total Protein 7.6 g/dL (6.3-8.2)
[2025-09-15 17:29] LABS: Thyroid Stimulating Hormone 1.770 uIU/mL (0.465-4.680)
[2025-09-17 15:07] LABS: Vitamin B12 658.0 pg/mL (239-931)
== END 2025-09-15 15:37 | disposition home or self-care (01) ==
LOC: ANHLAB 15:37
PROVIDERS: PCP Family Medicine; Visit Provider Physician Assistant
DX: E55.9 Vitamin D deficiency, unspecified (principal); R53.83 Other fatigue; R42 Dizziness and giddiness; R07.9 Chest pain, unspecified; R51.9 Headache, unspecified; E07.9 Disorder of thyroid, unspecified; D64.9 Anemia, unspecified
CPT/HCPCS: 36415; 80053; 82306; 82607; 84439; 84443; 85025; 85652